=== PATIENT | female | born 1990 | race Caucasian/White ===

== ENCOUNTER 2017-04-23 00:39 | Emergency (ER) | payer SELFPAY ==
[~2017-04-23] VITALS: Ht 157.5 cm; Wt 52.2 kg
[2017-04-23 00:42] VITALS: BP 118/60; PULSE 79; RESP 18; TEMP 98.7; O2SAT 98
--- NOTE | 2017-04-23 00:44 | NUR ---
Placed in room 04 . Placed on rn cardiac rehab, blood pressure machine and pulse oximeter. To gown for exam. Side rails up. Report given to MOJGAN Cuadra.
--- NOTE | 2017-04-23 00:45 | NUR ---
ED MD Davis at bedside for medical evaluation.
--- NOTE | 2017-04-23 00:46 | NUR ---
Patient brought in by law enforcement for medical clearance. Patient is a/o x 4. Patient reports taking xanax daily, but has not taken any today. Patient does not appear in distress. Has no complaints at this time. Vital signs within normal limits. Will continue to monitor.
[2017-04-23 00:53] VITALS: BP 118/60; PULSE 79; RESP 18; TEMP 98.7; O2SAT 98
--- NOTE | 2017-04-23 00:53 | NUR ---
Patient given written and verbal discharge instructions and verbalizes understanding. ER MD discussed with patient the results and treatment provided. Patient in stable condition. ID arm band removed. Patient educated on pain management and to follow up with PMD. Pain Scale 0/10. Opportunity for questions provided and answered.
== END 2017-04-23 00:53 ==
LOC: SED 00:39
DX: Z02.89 Encounter for other administrative examinations (principal); F17.210 Nicotine dependence, cigarettes, uncomplicated
CPT/HCPCS: 99283

== ENCOUNTER 2019-11-27 12:29 | Emergency (ER) | payer MEDICAID ==
[~2019-11-27] VITALS: Ht 157.5 cm; Wt 52.6 kg
[2019-11-27 13:07] VITALS: BP_SYST 135
[2019-11-27 14:19] LABS: BASOPHILS % (AUTO) 0.7 % (0.0-2.0); EOSINOPHILS # (AUTO) 0.1 K/uL (0.0-0.4); EOSINOPHILS % (AUTO) 1.3 % (0.0-4.0); HEMATOCRIT 41.6 % (36-48); HEMOGLOBIN 14.2 g/dL (12.0-16.0); LYMPHOCYTES # (AUTO) 1.7 K/uL (1.0-5.5); MEAN CORPUSCULAR HEMOGLOBIN 32 pg (27-31); MEAN CORPUSCULAR HGB CONC 34 % (32-36); MEAN CORPUSCULAR VOLUME 93 fL (79.0-98.0); MONOCYTES # (AUTO) 0.4 K/uL (0.0-1.0); MONOCYTES % (AUTO) 5.7 % (1.7-9.3); NEUTROPHILS # (AUTO) 4.3 K/uL (1.8-7.7); NEUTROPHILS % (AUTO) 66.3 % (40.0-70.0); PLATELET COUNT (AUTO) 314 K/uL (130-430); RED BLOOD CELL COUNT(AUTO) 4.46 MIL/uL (4.2-6.2); RED CELL DISTRIBUTION WIDTH 13.1 % (9.0-15.0); WHITE BLOOD COUNT (AUTO) 6.5 K/uL (4.8-10.8)
[2019-11-27 15:22] LABS: CALCIUM 8.8 mg/dL (8.4-11.0); CREATININE 0.87 mg/dL (0.55-1.30); POTASSIUM 3.8 mmol/L (3.5-5.1)
[2019-11-27 15:28] LABS: ALBUMIN 3.9 g/dL (3.4-4.8); TOTAL BILIRUBIN 0.3 mg/dL (0.0-1.0)
--- NOTE | 2019-11-27 15:43 | NUR ---
Patient to ER bed 07 to gown for evaluation. Side rails up. Report given to MOJGAN Chaves
--- NOTE | 2019-11-27 15:45 | NUR ---
ER Dr. Olivia at bedside examining patient.
--- NOTE | 2019-11-27 15:50 | NUR ---
Patient came into the ER due to hematuria. Patient advised she had an and also wanted to make sure she was not . Patient is accompanied by mother. Patient not complaining of any pain or discomfort.
[2019-11-27 16:07] LABS: BILIRUBIN,URINE NEGATIVE (NEGATIVE); BLOOD, URINE 3+ (NEGATIVE); CLARITY/URINE CLEAR (CLEAR); COLOR,URINE YELLOW (YELLOW); GLUCOSE,URINE NEGATIVE (NEGATIVE); KETONES,URINE NEGATIVE (NEGATIVE); LEUKOCYTE ESTERASE ,URINE NEGATIVE (NEGATIVE); NITRITE, URINE NEGATIVE (NEGATIVE); PROTEIN URINE NEGATIVE (NEGATIVE); UROBILINOGEN,URINE 0.2 (0.2-1.0)
[2019-11-27 16:20] LABS: BACTERIA,URINE RARE /HPF (None Seen); WBC,URINE 0-3 /HPF (0-3)
--- NOTE | 2019-11-27 16:20 | NUR ---
Patient given written and verbal discharge instructions and verbalizes understanding. ER MD discussed with patient the results and treatment provided. Patient in stable condition. Patient educated on pain management and to follow up with PMD. Pain Scale 0/10. Opportunity for questions provided and answered. Medication side effect fact sheet provided.
[2019-11-27 16:21] LABS: MUCUS,URINE None Seen /LPF (None Seen)
[2019-11-27 16:34] VITALS: BP_SYST 135
== END 2019-11-27 16:20 | disposition home or self-care (01) ==
LOC: SED 12:29
DX: N93.9 Abnormal uterine and vaginal bleeding, unspecified (principal); F17.210 Nicotine dependence, cigarettes, uncomplicated
CPT/HCPCS: 36415; 76830-TC; 76857; 80053; 81000-TC; 84702-TC; 85025; 99284